=== PATIENT | male | born 2000 | race Caucasian/White ===

== ENCOUNTER 2022-07-04 20:38 | Emergency (ER) | payer SELFPAY ==
[~2022-07-04] VITALS: Ht 170.2 cm; Wt 77.3 kg
[2022-07-04 23:12] VITALS: BP 133/72
== END 2022-07-05 00:22 | disposition home or self-care (01) ==
LOC: EMS 20:42
DX: S93.402A Sprain of unspecified ligament of left ankle, initial encounter (principal); F17.210 Nicotine dependence, cigarettes, uncomplicated; Z98.890 Other specified postprocedural states; Z88.0 Allergy status to penicillin; Z88.8 Allergy status to other drugs, medicaments and biological substances; W18.39XA Other fall on same level, initial encounter; Y93.68 Activity, volleyball (beach) (court); Y92.89 Other specified places as the place of occurrence of the external cause; Y99.8 Other external cause status
CPT/HCPCS: 29515; 99283